=== PATIENT | male | born 1985 | race Caucasian/White ===

== ENCOUNTER 2018-07-18 12:35 | Inpatient (IN) | payer SELFPAY, OTHER, MEDICAID ==
[2018-07-18 13:24] LABS: HEMATOCRIT 42.7 % (42.0-52.0); HEMOGLOBIN 15.5 g/dl (13.5-17.5); MEAN CORPUSCULAR HEMOGLOBIN 31.4 pg (27.0-33.0); MEAN CORPUSCULAR HGB CONC 36.3 g/dl (32.0-36.5); MEAN CORPUSCULAR VOLUME 86.4 fl (80.0-96.0); PLATELET COUNT, AUTOMATED 250 10^3/uL (150-450); RED BLOOD COUNT 4.94 10^6/uL (4.30-6.10); RED CELL DISTRIBUTION WIDTH 11.6 % (11.5-14.5); WHITE BLOOD COUNT 8.6 10^3/uL (4.0-10.0)
[2018-07-18 14:21] LABS: ACETAMINOPHEN LEVEL < 2.0 UG/ML (10.0-30.0); ALBUMIN 4.4 GM/DL (3.2-5.2); ALBUMIN/GLOBULIN RATIO 1.57 (1.00-1.93); ALKALINE PHOSPHATASE 74 U/L (45-117); ALT/SGPT 31 U/L (12-78); AMPHETAMINES LEVEL URINE NEGATIVE (NEGATIVE); ANION GAP 11 MEQ/L (8-16); AST/SGOT 11 U/L (7-37); BARBITURATES URINE NEGATIVE (NEGATIVE); BENZODIAZEPINES URINE NEGATIVE (NEGATIVE); BILIRUBIN,DIRECT 0.1 MG/DL (0.0-0.2); BILIRUBIN,TOTAL 0.4 MG/DL (0.2-1.0); BLOOD UREA NITROGEN 9 MG/DL (7-18); CALCIUM LEVEL 9.2 MG/DL (8.5-10.1); CANNABINOIDS URINE POSITIVE (NEGATIVE); CARBON DIOXIDE LEVEL 27 MEQ/L (21-32); CHLORIDE LEVEL 103 MEQ/L (98-107); COCAINE METABOLITE URINE NEGATIVE (NEGATIVE); CREATININE FOR GFR 0.88 MG/DL (0.70-1.30); ETHYL ALCOHOL (ETHANOL) < 0.003 % (0.000-0.010); GLOMERULAR FILTRATION RATE > 60.0 (>60); GLUCOSE, FASTING 109 MG/DL (70-100); METHADONE URINE NEGATIVE (NEGATIVE); OPIATES URINE NEGATIVE (NEGATIVE); PHENCYCLIDINE URINE NEGATIVE (NEGATIVE); POTASSIUM SERUM 4.1 MEQ/L (3.5-5.1); SALICYLATE LEVEL 1.9 MG/DL (5.0-30.0); SODIUM LEVEL 141 MEQ/L (136-145); THYROID STIMULATING HORMONE 0.559 uIU/ML (0.358-3.740); TOTAL PROTEIN 7.2 GM/DL (6.4-8.2)
[2018-07-18] MEDS ORDERED: MOM 30ML SUSPENSION UDC PO (15:30)
[2018-07-18] MEDS ORDERED: MAALOX 30 ML SUSP *UDC PO (15:30)
[2018-07-18] MEDS: NICOTINE 21MG/24HR 1 EA TRANSDERMAL TD (18:37)
[2018-07-18] MEDS: ACETAMINOPHEN TAB 650MG DOSE (2X325MG) PO (18:37)
[2018-07-18] MEDS: traZODone 50 MG TAB PO (21:04)
[2018-07-19] MEDS: ACETAMINOPHEN TAB 650MG DOSE (2X325MG) PO (08:14)
[2018-07-19] MEDS: NICOTINE 21MG/24HR 1 EA TRANSDERMAL TD (08:14)
[2018-07-19] MEDS: cloNIDine 0.1 MG TAB PO ×2 (12:49→17:45)
[2018-07-19] MEDS: METHADONE 5 MG TAB (S0109) PO (12:50)
[2018-07-19] MEDS: traZODone 50 MG TAB PO (20:55)
[2018-07-20] MEDS: cloNIDine 0.1 MG TAB PO ×4 (06:00→17:09)
[2018-07-20] MEDS: NICOTINE 21MG/24HR 1 EA TRANSDERMAL TD (08:10)
[2018-07-20] MEDS: METHADONE 5 MG TAB (S0109) PO ×2 (08:10→13:02)
[2018-07-20] MEDS: LIDOCAINE 5% (LIDODERM) PATCH TD (12:53)
[2018-07-20] MEDS: traZODone 50 MG TAB PO (21:40)
[2018-07-21] MEDS: cloNIDine 0.1 MG TAB PO ×4 (06:00→17:00)
[2018-07-21] MEDS: NICOTINE 21MG/24HR 1 EA TRANSDERMAL TD (07:59)
[2018-07-21] MEDS: METHADONE 5 MG TAB (S0109) PO ×2 (08:00→15:06)
[2018-07-21] MEDS: LIDOCAINE 5% (LIDODERM) PATCH TD (08:00)
[2018-07-21] MEDS ORDERED: METHADONE 10 MG TAB (S0109) PO (09:00)
[2018-07-21] MEDS ORDERED: BENZOCAINE 10% 9GM TUBE (ANBESOL) TOP ×2 (11:15→11:30)
[2018-07-21] MEDS: IBUPROFEN 400 MG TAB PO (11:29)
[2018-07-21] MEDS: diphenhydrAMINE 25 MG CAP PO (11:29)
[2018-07-21] MEDS: hydrOXYzine 25 MG TAB PO (17:25)
[2018-07-21] MEDS: traZODone 50 MG TAB PO (20:54)
[2018-07-21] MEDS: IBUPROFEN 600 MG TAB PO (20:55)
[2018-07-22] MEDS: cloNIDine 0.1 MG TAB PO ×5 (06:00→23:40)
[2018-07-22] MEDS: LIDOCAINE 5% (LIDODERM) PATCH TD (08:12)
[2018-07-22] MEDS: SERTRALINE HCL 50 MG TAB PO (08:12)
[2018-07-22] MEDS: METHADONE 5 MG TAB (S0109) PO (08:12)
[2018-07-22] MEDS: NICOTINE 21MG/24HR 1 EA TRANSDERMAL TD (08:13)
[2018-07-22] MEDS: IBUPROFEN 600 MG TAB PO ×2 (09:51→17:11)
[2018-07-22] MEDS: hydrOXYzine 25 MG TAB PO ×2 (11:40→17:58)
[2018-07-22] MEDS: traZODone 50 MG TAB PO (21:47)
[2018-07-23] MEDS: cloNIDine 0.1 MG TAB PO ×2 (06:16→12:17)
[2018-07-23] MEDS: NICOTINE 21MG/24HR 1 EA TRANSDERMAL TD (08:02)
[2018-07-23] MEDS: SERTRALINE HCL 50 MG TAB PO (08:02)
[2018-07-23] MEDS: METHADONE 5 MG TAB (S0109) PO (08:02)
[2018-07-23] MEDS: LIDOCAINE 5% (LIDODERM) PATCH TD (08:03)
[2018-07-23] MEDS: hydrOXYzine 25 MG TAB PO (10:25)
[2018-07-23] MEDS: IBUPROFEN 600 MG TAB PO (10:26)
== END 2018-07-23 12:50 | disposition home or self-care (01) | DRG 754 ==
LOC: M ED 12:35 → M ED INP 15:22 → M PSY 17:25
DX: F32.9 Major depressive disorder, single episode, unspecified (principal); R45.851 Suicidal ideations; F12.10 Cannabis abuse, uncomplicated; F11.10 Opioid abuse, uncomplicated; Z88.0 Allergy status to penicillin; Z88.1 Allergy status to other antibiotic agents; M54.9 Dorsalgia, unspecified; F17.210 Nicotine dependence, cigarettes, uncomplicated

== ENCOUNTER 2018-07-25 00:31 | Emergency (ER) | payer MEDICAID, SELFPAY ==
[2018-07-25] MEDS: LORazepam 1 MG TAB PO ×2 (01:10)
[2018-07-25 01:32] LABS: HEMATOCRIT 40.7 % (42.0-52.0); HEMOGLOBIN 14.3 g/dl (13.5-17.5); MEAN CORPUSCULAR HEMOGLOBIN 30.6 pg (27.0-33.0); MEAN CORPUSCULAR HGB CONC 35.1 g/dl (32.0-36.5); PLATELET COUNT, AUTOMATED 232 10^3/uL (150-450); RED BLOOD COUNT 4.68 10^6/uL (4.30-6.10); RED CELL DISTRIBUTION WIDTH 11.4 % (11.5-14.5); WHITE BLOOD COUNT 10.4 10^3/uL (4.0-10.0)
[2018-07-25 02:20] LABS: ACETAMINOPHEN LEVEL < 2.0 UG/ML (10.0-30.0); ALBUMIN 3.8 GM/DL (3.2-5.2); ALBUMIN/GLOBULIN RATIO 1.27 (1.00-1.93); ALKALINE PHOSPHATASE 67 U/L (45-117); ALT/SGPT 52 U/L (12-78); ANION GAP 9 MEQ/L (8-16); AST/SGOT 21 U/L (7-37); BILIRUBIN,DIRECT < 0.1 MG/DL (0.0-0.2); BILIRUBIN,TOTAL 0.3 MG/DL (0.2-1.0); BLOOD UREA NITROGEN 8 MG/DL (7-18); CALCIUM LEVEL 8.5 MG/DL (8.5-10.1); CARBON DIOXIDE LEVEL 26 MEQ/L (21-32); CHLORIDE LEVEL 106 MEQ/L (98-107); CPK CREATINE PHOSPHOKINASE 138 U/L (39-308); CREATININE FOR GFR 0.99 MG/DL (0.70-1.30); ETHYL ALCOHOL (ETHANOL) < 0.003 % (0.000-0.010); GLOMERULAR FILTRATION RATE > 60.0 (>60); GLUCOSE, FASTING 110 MG/DL (70-100); MAGNESIUM LEVEL 1.5 MG/DL (1.8-2.4); MB/CK RELATIVE INDEX 0.72 (< OR =4); PHOSPHORUS LEVEL 2.3 MG/DL (2.5-4.9); POTASSIUM SERUM 3.7 MEQ/L (3.5-5.1); SALICYLATE LEVEL < 1.7 MG/DL (5.0-30.0); SODIUM LEVEL 141 MEQ/L (136-145); TOTAL PROTEIN 6.8 GM/DL (6.4-8.2); TROPONIN I < 0.02 NG/ML (< 0.10)
[2018-07-25] MEDS: MAGNESIUM OXIDE 400 MG TAB (MAG-OX) PO ×2 (02:30)
== END 2018-07-25 02:46 | disposition home or self-care (01) ==
LOC: M ED 00:31
DX: F41.9 Anxiety disorder, unspecified (principal); F33.9 Major depressive disorder, recurrent, unspecified; Z79.899 Other long term (current) drug therapy; Z79.891 Long term (current) use of opiate analgesic; Z88.0 Allergy status to penicillin; Z88.8 Allergy status to other drugs, medicaments and biological substances; F17.210 Nicotine dependence, cigarettes, uncomplicated
CPT/HCPCS: 71046

== ENCOUNTER 2018-07-29 07:48 | Outpatient (RCR) | payer MEDICAID, SELFPAY | END 2018-08-21 | LOC: M OUTALCOH 07:48 | DX: F11.20 Opioid dependence, uncomplicated (principal); F12.20 Cannabis dependence, uncomplicated ==

== ENCOUNTER → 2018-09-25 | Outpatient (CLI) | payer MEDICAID | LOC: M OUTALCOH 07:55 | DX: Z13.9 Encounter for screening, unspecified (principal); F11.20 Opioid dependence, uncomplicated ==

== ENCOUNTER 2018-10-18 16:00 | Outpatient (RCR) | payer MEDICAID ==
[~2018-10-18 16:00] MED LIST: HYDR-3363 PO; SERT50TA PO; SUBO8MIS SL; TRAZO50TA PO
== END 2018-10-21 ==
LOC: M OUTALCOH 16:00
PROVIDERS: ATTEND Psychiatry & Neurology Psychiatry
DX: F11.20 Opioid dependence, uncomplicated (principal); F12.20 Cannabis dependence, uncomplicated

== ENCOUNTER 2018-11-19 16:00 | Outpatient (RCR) | payer MEDICAID | END 2018-11-21 | LOC: M OUTALCOH 16:00 | PROVIDERS: ATTEND Psychiatry & Neurology Psychiatry | DX: F11.20 Opioid dependence, uncomplicated (principal); F12.20 Cannabis dependence, uncomplicated ==

== ENCOUNTER → 2018-12-19 | Outpatient (RCR) | payer MEDICAID | LOC: M OUTALCOH 11-26 16:00 | PROVIDERS: ATTEND Psychiatry & Neurology Psychiatry | DX: F11.20 Opioid dependence, uncomplicated (principal); F12.20 Cannabis dependence, uncomplicated ==

== ENCOUNTER 2019-01-14 11:00 | Outpatient (RCR) | payer MEDICAID | END 2019-01-19 | LOC: M OUTALCOH 11:00 | PROVIDERS: ATTEND Psychiatry & Neurology Psychiatry | DX: F11.20 Opioid dependence, uncomplicated (principal); F12.20 Cannabis dependence, uncomplicated ==

== ENCOUNTER 2019-02-14 15:00 | Outpatient (RCR) | payer MEDICAID ==
[~2019-02-14 15:00] MED LIST changes: +SERT-141 PO; -SERT50TA PO
== END 2019-02-18 ==
LOC: M OUTALCOH 15:00
PROVIDERS: ATTEND Psychiatry & Neurology Psychiatry
DX: F11.20 Opioid dependence, uncomplicated (principal); F12.20 Cannabis dependence, uncomplicated

== ENCOUNTER → 2019-11-28 | Outpatient (CLI) | payer MEDICAID, SELFPAY ==
[~2019-11-28] MED LIST changes: +TRAZ1TAB10 PO; -TRAZO50TA PO
== END ==
LOC: M OUTALCOH 09:34
PROVIDERS: ATTEND Psychiatry & Neurology Addiction Medicine
DX: F12.10 Cannabis abuse, uncomplicated (principal)

== ENCOUNTER 2019-12-17 16:00 | Outpatient (RCR) | payer OTHER, SELFPAY | END 2019-12-20 | LOC: M OUTALCOH 16:00 | PROVIDERS: ATTEND Psychiatry & Neurology Addiction Medicine | DX: F11.20 Opioid dependence, uncomplicated (principal); F12.10 Cannabis abuse, uncomplicated; Z72.0 Tobacco use ==

== ENCOUNTER → 2020-01-20 | Outpatient (RCR) | payer MEDICAID, SELFPAY | LOC: M OUTALCOH 12-24 16:00 | PROVIDERS: ATTEND Psychiatry & Neurology Addiction Medicine | DX: F11.20 Opioid dependence, uncomplicated (principal); F12.10 Cannabis abuse, uncomplicated; F10.10 Alcohol abuse, uncomplicated; Z72.0 Tobacco use ==

== ENCOUNTER 2020-02-18 13:53 | Outpatient (RCR) | payer OTHER | END 2020-02-19 | LOC: M OUTALCOH 13:53 | PROVIDERS: ATTEND Psychiatry & Neurology Addiction Medicine | DX: F11.20 Opioid dependence, uncomplicated (principal); F12.10 Cannabis abuse, uncomplicated; F10.10 Alcohol abuse, uncomplicated; Z72.0 Tobacco use ==

== ENCOUNTER 2020-03-09 10:00 | Outpatient (RCR) | payer OTHER | END 2020-03-21 | LOC: M OUTALCOH 10:00 | PROVIDERS: ATTEND Psychiatry & Neurology Addiction Medicine | DX: F11.20 Opioid dependence, uncomplicated (principal); F12.10 Cannabis abuse, uncomplicated; F10.10 Alcohol abuse, uncomplicated; Z72.0 Tobacco use ==

== ENCOUNTER 2020-03-29 09:45 | Outpatient (RCR) | payer OTHER | END 2020-04-20 | LOC: M OUTALCOH 09:45 | PROVIDERS: ATTEND Psychiatry & Neurology Addiction Medicine | DX: F11.20 Opioid dependence, uncomplicated (principal); F12.10 Cannabis abuse, uncomplicated; F10.10 Alcohol abuse, uncomplicated; Z72.0 Tobacco use ==

== ENCOUNTER → 2020-05-04 | Outpatient (CLI) | payer OTHER, SELFPAY | LOC: M OUTALCOH 08:10 | PROVIDERS: ATTEND Psychiatry & Neurology Addiction Medicine | DX: Z13.39 Encounter for screening examination for other mental health and behavioral disorders (principal); F12.10 Cannabis abuse, uncomplicated ==

== ENCOUNTER 2020-06-14 08:00 | Outpatient (RCR) | payer OTHER, SELFPAY | END 2020-06-21 | LOC: M OUTALCOH 08:00 | PROVIDERS: ATTEND Psychiatry & Neurology Addiction Medicine | DX: F11.10 Opioid abuse, uncomplicated (principal); F12.10 Cannabis abuse, uncomplicated; F10.10 Alcohol abuse, uncomplicated; Z72.0 Tobacco use ==

== ENCOUNTER → 2020-07-21 | Outpatient (RCR) | payer OTHER, SELFPAY | LOC: M OUTALCOH 06-23 13:32 | PROVIDERS: ATTEND Psychiatry & Neurology Addiction Medicine | DX: F11.10 Opioid abuse, uncomplicated (principal); F12.10 Cannabis abuse, uncomplicated; F10.10 Alcohol abuse, uncomplicated; Z72.0 Tobacco use ==

== ENCOUNTER 2020-08-19 16:00 | Outpatient (RCR) | payer SELFPAY | END 2020-08-21 | LOC: M OUTALCOH 16:00 | PROVIDERS: ATTEND Psychiatry & Neurology Addiction Medicine | DX: F10.10 Alcohol abuse, uncomplicated (principal); F12.10 Cannabis abuse, uncomplicated; Z72.0 Tobacco use ==

== ENCOUNTER → 2020-08-27 | Outpatient (REF) | payer OTHER, SELFPAY | LOC: M SMT 16:58 | PROVIDERS: ATTEND Urology | DX: Z30.2 Encounter for sterilization (principal) ==

== ENCOUNTER 2020-09-14 14:31 | Outpatient (RCR) | payer SELFPAY | END 2020-09-20 | LOC: M OUTALCOH 14:31 | PROVIDERS: ATTEND Psychiatry & Neurology Addiction Medicine | DX: F10.20 Alcohol dependence, uncomplicated (principal); F12.10 Cannabis abuse, uncomplicated; Z72.0 Tobacco use ==

== ENCOUNTER 2020-10-20 14:00 | Outpatient (RCR) | payer OTHER, SELFPAY | END 2020-10-21 | LOC: M OUTALCOH 14:00 | PROVIDERS: ATTEND Psychiatry & Neurology Addiction Medicine | DX: F10.20 Alcohol dependence, uncomplicated (principal); F12.10 Cannabis abuse, uncomplicated; Z72.0 Tobacco use | CPT/HCPCS: 90832; H0038 ==

== ENCOUNTER 2020-11-19 08:45 | Outpatient (RCR) | payer SELFPAY | END 2020-11-21 | LOC: M OUTALCOH 08:45 | PROVIDERS: ATTEND Psychiatry & Neurology Addiction Medicine | DX: F12.20 Cannabis dependence, uncomplicated (principal); F10.20 Alcohol dependence, uncomplicated; Z72.0 Tobacco use | CPT/HCPCS: H0038 ×3 ==

== ENCOUNTER 2020-12-17 08:45 | Outpatient (RCR) | payer SELFPAY | END 2020-12-19 | LOC: M OUTALCOH 08:45 | PROVIDERS: ATTEND Psychiatry & Neurology Psychiatry | DX: F10.20 Alcohol dependence, uncomplicated (principal); F12.10 Cannabis abuse, uncomplicated; Z72.0 Tobacco use ==

== ENCOUNTER 2020-12-23 16:14 | Emergency (ER) | payer OTHER, SELFPAY ==
[~2020-12-23] VITALS: Ht 177.8 cm; Wt 116.2 kg
[2020-12-23] MEDS ORDERED: METOCLOPRAMIDE INJ 10MG/2ML VIAL (J2765 PER 1) IV ONE (17:40)
[2020-12-23] MEDS ORDERED: dexameTHASONE 20MG/5ML VIAL (J1100 PER 1MG) IV ONE (17:40)
[2020-12-23] MEDS ORDERED: KETOROLAC 30 MG/ML 1ML VIAL IV ONE (17:40)
[2020-12-23] MEDS ORDERED: NS 1,000 ML IV ONE (17:40)
[2020-12-23] MEDS ORDERED: diphenhydrAMINE 50MG/ML VIAL (J1200) IV STA (17:40)
--- NOTE | 2020-12-23 18:01 | REPVR ---
PROCEDURE INFORMATION: Exam: CT Head Without Contrast Exam date and time: 12/23/2020 5:47 PM Age: 35 years old Clinical indication: Pain; Headache; Additional info: SCHUSTER, wraps around head TECHNIQUE: Imaging protocol: Computed tomography of the head without contrast. Radiation optimization: All CT scans at this facility use at least one of these dose optimization techniques: automated exposure control; mA and/or kV adjustment per patient size (includes targeted exams where dose is matched to clinical indication); or iterative reconstruction. COMPARISON: No relevant prior studies available. FINDINGS: Brain: Normal. No hemorrhage. Unremarkable white matter. No mass effect. Cerebral ventricles: No ventriculomegaly. Bones/joints: Unremarkable. No acute fracture. Paranasal sinuses: Visualized sinuses are unremarkable. No fluid levels. Mastoid air cells: Visualized mastoid air cells are well aerated. Soft tissues: Unremarkable. IMPRESSION: No acute intracranial abnormality. Electronically signed by: Wilfredo Vázquez On 12/23/2020 18:01:46 PM
[2020-12-23 18:14] LABS: BASO % 0.4 % (0.0-1.0); EOS % 0.2 % (0.0-3.0); HEMATOCRIT 42.2 % (42.0-52.0); LYMPH # 1.6 10^3/uL (1.5-5.0); MEAN CORPUSCULAR HEMOGLOBIN 28.6 pg (27.0-33.0); MEAN CORPUSCULAR HGB CONC 33.2 g/dl (32.0-36.5); MEAN CORPUSCULAR VOLUME 86.1 fl (80.0-96.0); MONO # 0.6 10^3/uL (0.0-0.8); MONO % 5.4 % (2.0-8.0); NEUTROPHILS # 8.2 10^3/uL (1.5-8.5); NEUTROPHILS % 78.4 % (36.0-66.0); PLATELET COUNT, AUTOMATED 280 10^3/uL (150-450); WHITE BLOOD COUNT 10.5 10^3/uL (4.0-10.0)
[2020-12-23 19:26] LABS: RSV AMPLIFICATION NEGATIVE (NEGATIVE)
[2020-12-23] MEDS ORDERED: PRED20TA PO (20:12)
[2020-12-23 20:15] VITALS: BP 148/80
== END 2020-12-23 20:26 | disposition home or self-care (01) ==
LOC: M ED 16:14
DX: R51.9 Headache, unspecified (principal); Z79.891 Long term (current) use of opiate analgesic; Z88.0 Allergy status to penicillin; Z88.1 Allergy status to other antibiotic agents; Z88.2 Allergy status to sulfonamides; F17.210 Nicotine dependence, cigarettes, uncomplicated
CPT/HCPCS: 70450; 80047; 83735; 85025; 87631; 96361; 96374; 96375; 99284; J1100; J1200; J1885; J2765

== ENCOUNTER 2021-01-10 13:26 | Outpatient (RCR) | payer OTHER, SELFPAY ==
[~2021-01-10 13:26] MED LIST changes: +PRED20TA PO
== END 2021-01-19 ==
LOC: M OUTALCOH 13:26
PROVIDERS: ATTEND Psychiatry & Neurology Psychiatry
DX: F10.20 Alcohol dependence, uncomplicated (principal); F12.10 Cannabis abuse, uncomplicated; F11.20 Opioid dependence, uncomplicated; Z72.0 Tobacco use

== ENCOUNTER 2022-01-23 13:49 | Emergency (ER) | payer OTHER ==
[~2022-01-23] VITALS: Ht 177.8 cm; Wt 127.6 kg
[2022-01-23 13:49] VITALS: BP 145/87
== END 2022-01-23 18:00 | disposition left against medical advice (07) ==
LOC: M ED 13:49
DX: Z53.29 Procedure and treatment not carried out because of patient's decision for other reasons (principal)

== ENCOUNTER 2022-08-11 08:34 | Inpatient (IN) | payer OTHER ==
[~2022-08-11] VITALS: Ht 177.8 cm; Wt 116.9 kg
[2022-08-11] MEDS ORDERED: IBUP80TA PO (08:49)
[2022-08-11] MEDS ORDERED: CEPH500C PO (08:49)
[2022-08-11] MEDS ORDERED: VANCOMYCIN HCL 2,000 MG in D5W 500 ML IV ONE (10:10)
[2022-08-11] MEDS ORDERED: VANCOMYCIN HCL 1,000 MG, VIAL MATE ADAPTER 1 EACH in NS 250 ML IV ONE ×6 (10:15)
[2022-08-11 10:37] LABS: HEMATOCRIT 44.4 % (42.0-52.0); HEMOGLOBIN 14.8 g/dl (13.5-17.5); MEAN CORPUSCULAR HGB CONC 33.3 g/dl (32.0-36.5); MEAN CORPUSCULAR VOLUME 90.1 fl (80.0-96.0); PLATELET COUNT, AUTOMATED 239 10^3/uL (150-450); RED BLOOD COUNT 4.93 10^6/uL (4.30-6.10); WHITE BLOOD COUNT 12.1 10^3/uL (4.0-10.0)
[2022-08-11 11:05] LABS: ATYPICAL LYMPH 2 % (0-5); BASOPHILS 1 % (0-1); LYMPHOCYTES 5 % (16-44); MONOCYTES 3 % (0-5); NEUTROPHILS 88 % (28-66)
[2022-08-11 11:06] LABS: PLATELET ESTIMATE NORMAL (NORMAL)
[2022-08-11 11:07] LABS: ERYTHROCYTE SEDIMENTATION RATE 7 mm/hr (0-15)
[2022-08-11 11:30] LABS: RSV AMPLIFICATION NEGATIVE (NEGATIVE)
[2022-08-11 11:39] LABS: BLOOD UREA NITROGEN 8 MG/DL (7-18); CALCIUM LEVEL 8.8 MG/DL (8.5-10.1); CARBON DIOXIDE LEVEL 27 MEQ/L (21-32); CHLORIDE LEVEL 107 MEQ/L (98-107); CREATININE FOR GFR 0.91 MG/DL (0.70-1.30); GLOMERULAR FILTRATION RATE > 60.0 (>60); GLUCOSE, FASTING 91 MG/DL (70-100); POTASSIUM SERUM 4.1 MEQ/L (3.5-5.1); SODIUM LEVEL 139 MEQ/L (136-145)
[2022-08-11] MEDS ORDERED: NS 2,490 ML in IV 1 EA IV ONE (11:55)
[2022-08-11] MEDS ORDERED: ONDANSETRON 4MG 2ML VIAL IV ONE (11:55)
[2022-08-11] MEDS ORDERED: MORPHINE 4 MG/ML 1ML VIAL/SYRINGE IV ONE (11:55)
[2022-08-11] MEDS ORDERED: ONDANSETRON 4MG 2ML VIAL IV PRN ×2 (12:45→20:45)
[2022-08-11] MEDS ORDERED: MORPHINE 4 MG/ML 1ML VIAL/SYRINGE IV PRN (12:45)
[2022-08-11] MEDS ORDERED: ACETAMINOPHEN TAB 650MG DOSE (2X325MG) PO PRN (12:55)
[2022-08-11] MEDS ORDERED: HOME MED LIST COMPLETE! XX SCH (13:15)
[2022-08-11] MEDS ORDERED: NICOTINE 14 MG/24 HR TRANSDERMAL TD STA (16:11)
[2022-08-11] MEDS: KETOROLAC 30 MG/ML 1ML VIAL IV PRN ×2 (16:20→23:31)
[2022-08-11] MEDS ORDERED: propofoL 200 MG/20 ML VIAL As Ordered ONE (19:47)
[2022-08-11] MEDS ORDERED: LIDOCAINE 2% 100MG/5ML SDV (FOR ANES.) As Ordered ONE (19:47)
[2022-08-11] MEDS ORDERED: fentaNYL 250 MCG/5 ML INJECTION As Ordered ONE (19:47)
[2022-08-11] MEDS ORDERED: MIDAZOLAM INJ 2MG/2ML VIAL (J2250 PER 1MG) As Ordered ONE (19:47)
[2022-08-11] MEDS ORDERED: VANCOMYCIN 1000MG/20ML VIAL As Ordered ONE (19:57)
[2022-08-11] MEDS ORDERED: CLINDAMYCIN 900MG/50ML PREMIX BAG As Ordered ONE (19:58)
[2022-08-11] MEDS ORDERED: ONDANSETRON 4MG 2ML VIAL As Ordered ONE (20:23)
[2022-08-11] MEDS ORDERED: ACETAMINOPHEN 1000MG 100ML IV BTL (OFIRMEV) (J0131 PER 10MG) As Ordered ONE (20:23)
[2022-08-11] MEDS ORDERED: KETOROLAC 60MG 2ML VIAL As Ordered ONE (20:23)
[2022-08-11] MEDS ORDERED: dexameTHASONE 4 MG/ML 1ML VIAL (J1100 PER 1MG) As Ordered ONE (20:23)
[2022-08-11] MEDS ORDERED: LR 1,000 ML IV SCH (20:45)
[2022-08-11] MEDS: oxyCODONE 5MG TAB PO PRN ×2 (20:59→21:32)
[2022-08-11] MEDS ORDERED: PANTOPRAZOLE 40MG TAB (PROTONIX) PO SCH (21:00)
[2022-08-11] MEDS: fentaNYL 100 MCG/2 ML INJECTION IV PRN ×4 (21:00→21:20)
[2022-08-11 22:15] VITALS: BP 156/85
[2022-08-11 22:45] VITALS: BP 142/67
[2022-08-11] MEDS: VANCOMYCIN HCL 1,000 MG, VIAL MATE ADAPTER 1 EACH in NS 250 ML IV SCH (23:31)
[2022-08-11 23:45] VITALS: BP 143/73
[2022-08-12 00:45] VITALS: BP 157/81
[2022-08-12 01:45] VITALS: BP 145/75
[2022-08-12 02:45] VITALS: BP 142/77
[2022-08-12] MEDS: VANCOMYCIN HCL 1,000 MG, VIAL MATE ADAPTER 1 EACH in NS 250 ML IV SCH (03:55)
[2022-08-12] MEDS ORDERED: traMADol 50 MG TAB PO ONE (05:00)
[2022-08-12 06:00] VITALS: BP 138/87
[2022-08-12 07:19] LABS: HEMATOCRIT 40.8 % (42.0-52.0); HEMOGLOBIN 13.8 g/dl (13.5-17.5); MEAN CORPUSCULAR HEMOGLOBIN 29.7 pg (27.0-33.0); MEAN CORPUSCULAR HGB CONC 33.8 g/dl (32.0-36.5); MEAN CORPUSCULAR VOLUME 87.9 fl (80.0-96.0); PLATELET COUNT, AUTOMATED 246 10^3/uL (150-450); RED BLOOD COUNT 4.64 10^6/uL (4.30-6.10); WHITE BLOOD COUNT 10.6 10^3/uL (4.0-10.0)
[2022-08-12 07:47] LABS: BLOOD UREA NITROGEN 6 MG/DL (7-18); CALCIUM LEVEL 8.7 MG/DL (8.5-10.1); CARBON DIOXIDE LEVEL 26 MEQ/L (21-32); CHLORIDE LEVEL 107 MEQ/L (98-107); CREATININE FOR GFR 0.76 MG/DL (0.70-1.30); GLOMERULAR FILTRATION RATE > 60.0 (>60); GLUCOSE, FASTING 121 MG/DL (70-100); POTASSIUM SERUM 4.4 MEQ/L (3.5-5.1); SODIUM LEVEL 137 MEQ/L (136-145)
[2022-08-12] MEDS ORDERED: KETOROLAC 30 MG/ML 1ML VIAL IV SCH (08:00)
[2022-08-12] MEDS ORDERED: PERCOCET 5MG/325MG TAB PO PRN (08:05)
[2022-08-12] MEDS ORDERED: NICOTINE 14 MG/24 HR TRANSDERMAL TD SCH (09:00)
[2022-08-12] MEDS ORDERED: CLIN150C17 PO (09:33)
[2022-08-12 10:00] VITALS: BP 158/98
[2022-08-12] MEDS ORDERED: VANCOMYCIN HCL 1,000 MG, VIAL MATE ADAPTER 1 EACH in NS 250 ML IV SCH (10:00)
== END 2022-08-12 11:45 | disposition home or self-care (01) | DRG 951 ==
LOC: M ED 08:34 → M ED INP 12:36 → M MS5PR 22:10
PROVIDERS: ADMIT Internal Medicine Nephrology; ATTEND Internal Medicine Nephrology
PROC: 0LB80ZZ Excision of Left Hand Tendon, Open Approach (ICD-10-PCS; principal; 2022-08-11 20:00)
DX: L02.512 Cutaneous abscess of left hand (principal); F32.A Depression, unspecified; S61.432D Puncture wound without foreign body of left hand, subsequent encounter; L03.114 Cellulitis of left upper limb; E66.9 Obesity, unspecified; F17.200 Nicotine dependence, unspecified, uncomplicated; F41.9 Anxiety disorder, unspecified; Z88.0 Allergy status to penicillin; Z88.2 Allergy status to sulfonamides; Z88.6 Allergy status to analgesic agent; Z79.2 Long term (current) use of antibiotics; Z20.822 Contact with and (suspected) exposure to COVID-19; W45.0XXA Nail entering through skin, initial encounter; Y92.009 Unspecified place in unspecified non-institutional (private) residence as the place of occurrence of the external cause; L03.124 Acute lymphangitis of left upper limb

== ENCOUNTER 2023-09-26 13:31 | Emergency (ER) | payer OTHER ==
[~2023-09-26] VITALS: Ht 177.8 cm; Wt 119.2 kg
[~2023-09-26 13:31] MED LIST changes: +CEPH500C PO; +CLIN150C17 PO; +IBUP80TA PO
[2023-09-26] MEDS ORDERED: ACET-897 PO (14:31)
[2023-09-26] MEDS ORDERED: CLIN-250 PO (15:08)
[2023-09-26 15:19] VITALS: BP 179/98; TEMP 97.1; O2SAT 99
== END 2023-09-26 15:22 | disposition home or self-care (01) ==
LOC: M ED 13:31
DX: K02.9 Dental caries, unspecified (principal); F17.210 Nicotine dependence, cigarettes, uncomplicated; Z88.0 Allergy status to penicillin; Z88.1 Allergy status to other antibiotic agents; Z88.2 Allergy status to sulfonamides; Z88.8 Allergy status to other drugs, medicaments and biological substances

== ENCOUNTER → 2024-12-30 | Outpatient (CLI) | payer OTHER ==
[~2024-12-30] MED LIST changes: +ACET-897 PO; +CLIN-250 PO
== END ==
LOC: M OUTALCOH 08:44
PROVIDERS: ATTEND Psychiatry & Neurology Psychiatry
DX: F12.10 Cannabis abuse, uncomplicated (principal); F15.20 Other stimulant dependence, uncomplicated; Z72.0 Tobacco use

== ENCOUNTER 2025-01-12 15:56 | Outpatient (RCR) | payer MEDICAID, OTHER | END 2025-01-19 | LOC: M OUTALCOH 15:56 | PROVIDERS: ATTEND Psychiatry & Neurology Psychiatry | DX: F12.10 Cannabis abuse, uncomplicated (principal); F15.20 Other stimulant dependence, uncomplicated; Z72.0 Tobacco use ==

== ENCOUNTER → 2025-02-18 | Outpatient (RCR) | payer MEDICAID | LOC: M OUTALCOH 01-23 12:22 | PROVIDERS: ATTEND Psychiatry & Neurology Psychiatry | DX: F12.10 Cannabis abuse, uncomplicated (principal); F15.20 Other stimulant dependence, uncomplicated; Z72.0 Tobacco use ==

== ENCOUNTER 2025-05-15 15:00 | Outpatient (RCR) | payer MEDICAID | END 2025-05-21 | LOC: M OUTALCOH 15:00 | PROVIDERS: ATTEND Psychiatry & Neurology Psychiatry | DX: F12.10 Cannabis abuse, uncomplicated (principal); F15.20 Other stimulant dependence, uncomplicated; Z72.0 Tobacco use ==

== ENCOUNTER 2025-06-15 13:43 | Emergency (ER) | payer MEDICAID, OTHER ==
[~2025-06-15] VITALS: Ht 177.8 cm; Wt 125.0 kg
[2025-06-15 13:44] VITALS: O2SAT 98
[2025-06-15] MEDS: NS (Normal Saline) 0.9% 1,000 ML IV ONE (14:35)
[2025-06-15] MEDS ORDERED: ISOVUE-370 76% 100 ML VIAL As Ordered ONE (15:08)
[2025-06-15 15:12] VITALS: BP 163/97; TEMP 98.5
[2025-06-15 15:25] LABS: CK-MB VALUE MASS 1.1 NG/ML (<3.6)
[2025-06-15 15:28] LABS: CALCIUM LEVEL 9.4 MG/DL (8.5-10.1); CARBON DIOXIDE LEVEL 26 MMOL/L (20-31); CHLORIDE LEVEL 107 MMOL/L (98-107); CREATININE FOR GFR 0.89 MG/DL (0.70-1.30); GLOMERULAR FILTRATION RATE > 90.0 (>60); POTASSIUM SERUM 4.6 MMOL/L (3.5-5.1); SODIUM LEVEL 141 MMOL/L (136-145)
[2025-06-15 15:32] LABS: CPK CREATINE PHOSPHOKINASE 100 U/L (46-171); MB/CK RELATIVE INDEX 1.10 (< OR =4)
== END 2025-06-15 17:50 | disposition home or self-care (01) ==
LOC: M ED 13:43
DX: S70.12XA Contusion of left thigh, initial encounter (principal); W19.XXXA Unspecified fall, initial encounter; Y92.9 Unspecified place or not applicable; Y93.9 Activity, unspecified; Y99.9 Unspecified external cause status; F41.9 Anxiety disorder, unspecified; F32.A Depression, unspecified; M54.9 Dorsalgia, unspecified; Z87.820 Personal history of traumatic brain injury; F17.200 Nicotine dependence, unspecified, uncomplicated; Z88.0 Allergy status to penicillin; Z88.2 Allergy status to sulfonamides; Z88.8 Allergy status to other drugs, medicaments and biological substances
CPT/HCPCS: 73706; 80047; 80048; 81002; 82550; 82553; 84484; 93971; 96360; 96361; 99284; Q9967

== ENCOUNTER 2025-06-19 15:00 | Outpatient (RCR) | payer MEDICAID | END 2025-06-21 | LOC: M OUTALCOH 15:00 | PROVIDERS: ATTEND Psychiatry & Neurology Psychiatry | DX: F12.10 Cannabis abuse, uncomplicated (principal); F15.20 Other stimulant dependence, uncomplicated; Z72.0 Tobacco use ==

== ENCOUNTER 2025-07-20 16:00 | Outpatient (RCR) | payer MEDICAID | END 2025-07-21 | LOC: M OUTALCOH 16:00 | PROVIDERS: ATTEND Psychiatry & Neurology Psychiatry | DX: F12.10 Cannabis abuse, uncomplicated (principal); F15.20 Other stimulant dependence, uncomplicated; Z72.0 Tobacco use ==

== ENCOUNTER 2025-08-11 09:53 | Outpatient (RCR) | payer MEDICAID | END 2025-08-21 | LOC: M OUTALCOH 09:53 | PROVIDERS: ATTEND Psychiatry & Neurology Psychiatry | DX: F12.10 Cannabis abuse, uncomplicated (principal); F15.20 Other stimulant dependence, uncomplicated; Z72.0 Tobacco use ==

== ENCOUNTER 2025-09-15 09:57 | Outpatient (RCR) | payer MEDICAID | END 2025-09-20 | LOC: M OUTALCOH 09:57 | PROVIDERS: ATTEND Psychiatry & Neurology Psychiatry | DX: F12.10 Cannabis abuse, uncomplicated (principal); F15.20 Other stimulant dependence, uncomplicated; Z72.0 Tobacco use ==